=== PATIENT | male | born 1945 | race Caucasian/White ===

== ENCOUNTER 2022-05-24 08:54 | Emergency (ER) | payer OTHER ==
[~2022-05-24] VITALS: Ht 185.4 cm; Wt 88.5 kg
[2022-05-24] MEDS ORDERED: ASPIRIN81 MG PO (09:21)
--- NOTE | 2022-05-24 22:45 | EKG ---
[facility] [address] [place], [place] [address] Signed Marked sinus bradycardia with 1st degree AV block Minimal voltage criteria for LVH, may be normal variant ( R in aVL ) Abnormal ECG No previous ECGs available Confirmed by VÍCTOR LOPEZ MD ([id number] on 05/24/2022 10:44:50 PM Electronically Signed By: VÍCTOR LOPEZ MD 05/24/22 2245 PATIENT NAME: MATHEW SMITH Electrocardiogram DATE OF : 49 PHYSICIAN: VÍCTOR LOPEZ MD REPORT #: [id number] REPORT IS CONFIDENTIAL AND NOT TO BE RELEASED WITHOUT AUTHORIZATION
== END 2022-05-24 15:41 | disposition home or self-care (01) ==
LOC: ED 08:54
DX: S70.01XA Contusion of right hip, initial encounter (principal); S00.93XA Contusion of unspecified part of head, initial encounter; R00.1 Bradycardia, unspecified; V03.99XA Pedestrian with other conveyance injured in collision with car, pick-up truck or van, unspecified whether traffic or nontraffic accident, initial encounter
CPT/HCPCS: 36415; 70450; 72125; 73502; 80053; 84443; 84484; 85025; 93005; 93010; 93270; 99284-25